=== PATIENT | female | born 1975 | race Caucasian/White ===

== ENCOUNTER 2022-02-06 08:05 | Emergency (ER) | payer OTHER ==
[~2022-02-06] VITALS: Ht 165.1 cm; Wt 68.0 kg
[~2022-02-06 08:05] MED LIST: AMOX500 PO; HYDACE5 PO; IBUP800; IBUP800 PO; OMEP40CA12 PO; ONDA4ODT MM; PRED20 PO; Veetids 500500 MG PO; Ventolin/Prove6.7 GM INH
[2022-02-06] MEDS ORDERED: LISI20 PO (08:20)
[2022-02-06] MEDS ORDERED: ERYT1OIN LEFTEYE (08:48)
[2022-02-06] MEDS ORDERED: AMOCLA875 PO (08:48)
== END 2022-02-06 09:02 | disposition home or self-care (01) ==
LOC: ER 08:05
DX: H66.91 Otitis media, unspecified, right ear (principal); H10.9 Unspecified conjunctivitis; J02.9 Acute pharyngitis, unspecified; F17.210 Nicotine dependence, cigarettes, uncomplicated
CPT/HCPCS: 99282

== ENCOUNTER 2023-10-25 17:07 | Emergency (ER) | payer OTHER ==
[~2023-10-25] VITALS: Ht 160 cm; Wt 72.6 kg
[~2023-10-25 17:07] MED LIST changes: +AMOCLA875 PO; +CEPH500 PO; +ERYT1OIN LEFTEYE; +LISI20 PO; +Pyridium200 MG PO
[2023-10-25 18:45] LABS: BASOPHILS ABSOLUTE AUTO 0.08 K/mm3 (0.00-0.23); BASOPHILS PERCENT AUTO 1 % (0-2); EOSINOPHILS ABSOLUTE AUTO 0.12 K/mm3 (0.00-0.68); EOSINOPHILS PERCENT AUTO 1 % (0-6); Hematocrit 30.8 % (33.0-51.0); Hemoglobin 9.1 g/dL (11.5-16.0); IMMATURE GRAN ABSOLUTE AUTO 0.03 K/mm3 (0.00-0.10); IMMATURE GRAN PERCENT AUTO 0 % (0-1); LYMPHOCYTES PERCENT AUTO 23 % (21-46); MONOCYTES PERCENT AUTO 8 % (4-13); Mean Corpuscular HGB 21.9 pg (26.0-34.0); Mean Corpuscular HGB Conc 29.5 g/dL (31.5-36.5); Mean Corpuscular Volume 74 fL (80-100); Mean Platelet Volume 10.1 fL (9.1-12.4); NEUTROPHILS ABSOLUTE AUTO 5.48 K/mm3 (1.96-9.15); NEUTROPHILS PERCENT AUTO 66 % (41-73); Platelet Count 391 K/mm3 (150-400); RDW Coefficient Variation 16.4 % (11.7-14.2); RDW Standard Deviation 43.6 fL (35.1-46.3); Red Blood Cell Count 4.16 M/mm3 (3.80-5.20); White Blood Cell Count 8.31 K/mm3 (4.00-11.30)
[2023-10-25 19:10] LABS: Albumin, Blood 3.8 g/dL (3.4-5.0); Bilirubin, Total 0.2 mg/dL (0.1-1.0); Bun/Creatinine Ratio 20.6 (12.0-20.0); Calcium, Blood 8.6 mg/dL (8.5-10.1); Creatinine, Blood 0.92 mg/dL (0.40-1.00); Globulin, Blood 3.7 g/dL (2.2-4.0); Potassium, Blood 3.5 mmol/L (3.5-5.5); Total Protein, Blood 7.5 g/dL (6.4-8.2)
[2023-10-25 20:00] VITALS: BP 156/90
== END 2023-10-25 20:17 | disposition home or self-care (01) ==
LOC: ER 17:07
PROVIDERS: Physician Assistant
DX: R10.11 Right upper quadrant pain (principal); F17.210 Nicotine dependence, cigarettes, uncomplicated
CPT/HCPCS: 76705; 80053; 83690; 84703; 85025; 99284-25

== ENCOUNTER 2024-07-26 17:00 | Emergency (ER) | payer SELFPAY ==
[~2024-07-26] VITALS: Ht 160 cm; Wt 80.7 kg
[2024-07-26 17:07] VITALS: BP 179/96
[2024-07-26] MEDS ORDERED: Fluorescein Sod 1MG Opth Strips LEFTEYE ONE (17:15)
[2024-07-26] MEDS ORDERED: Tetracaine HCl/Pf 0.5% Opth Soln 4 ml LEFTEYE ONE (18:15)
[2024-07-26] MEDS ORDERED: Ofloxacin 0.3% Opth Soln 5 ML LEFTEYE ONE (19:05)
[2024-07-26] MEDS ORDERED: Erythromycin 0.5% Opth Oint 1 gm LEFTEYE ONE (19:05)
[2024-07-26] MEDS ORDERED: ERYT1OIN BOTHEYES (19:07)
[2024-07-26] MEDS ORDERED: OCUFLOX510 BOTHEYES (19:07)
== END 2024-07-26 19:29 | disposition home or self-care (01) ==
LOC: ER 17:00
DX: S05.02XA Injury of conjunctiva and corneal abrasion without foreign body, left eye, initial encounter (principal); F17.210 Nicotine dependence, cigarettes, uncomplicated; X58.XXXA Exposure to other specified factors, initial encounter
CPT/HCPCS: 99283; A9270

== ENCOUNTER 2024-09-19 19:40 | Emergency (ER) | payer OTHER ==
[~2024-09-19] VITALS: Ht 160 cm; Wt 72.6 kg
[~2024-09-19 19:40] MED LIST changes: +ERYT1OIN BOTHEYES; +OCUFLOX510 BOTHEYES
[2024-09-19 19:52] VITALS: BP 170/98
== END 2024-09-20 08:30 | disposition home or self-care (01) ==
LOC: ER 19:40
DX: Z00.8 Encounter for other general examination (principal); F17.200 Nicotine dependence, unspecified, uncomplicated
CPT/HCPCS: 93005; 93010; 99282

== ENCOUNTER 2025-06-08 00:11 | Emergency (ER) | payer OTHER ==
[~2025-06-08] VITALS: Ht 160 cm; Wt 77.1 kg
[2025-06-08 05:26] VITALS: BP 148/79
== END 2025-06-08 05:26 | disposition home or self-care (01) ==
LOC: ER 00:11
DX: S76.311A Strain of muscle, fascia and tendon of the posterior muscle group at thigh level, right thigh, initial encounter (principal); F17.200 Nicotine dependence, unspecified, uncomplicated; W01.0XXA Fall on same level from slipping, tripping and stumbling without subsequent striking against object, initial encounter
CPT/HCPCS: 73502; 99283-25; A9270